=== PATIENT | female | born 1930 | race African-American/Black ===

== ENCOUNTER 2017-11-13 16:17 | Emergency (ER) | payer MEDICARE, OTHER ==
[~2017-11-13] VITALS: Ht 162.6 cm; Wt 68.0 kg
[2017-11-13 16:20] VITALS: BP 153/96
[2017-11-13] MEDS ORDERED: cefTRIAXone 1,000 MG VIAL ONE (16:32)
[2017-11-13] MEDS: NACL 0.9% 500 ML IV SCH (16:47)
[2017-11-13] MEDS: cefTRIAXone 1,000 MG in DEXT 5% MINI-BAG PLUS 50 ML IV ONE (16:47)
[2017-11-13] MEDS ORDERED: SENN8.6T70 PO (16:51)
[2017-11-13] MEDS ORDERED: DOCU-299 PO (16:51)
[2017-11-13] MEDS ORDERED: ATOR40TA PO (16:51)
[2017-11-13] MEDS ORDERED: VITD1000 PO (16:51)
[2017-11-13] MEDS ORDERED: VITA1TAB44 PO (16:51)
[2017-11-13] MEDS ORDERED: MULT-153 PO (16:51)
[2017-11-13 17:11] LABS: BASOPHILS # (AUTO) 0.1 K/uL (0.00-0.22); BASOPHILS % (AUTO) 0.7 % (0.0-2.0); EOSINOPHILS # (AUTO) 0.1 K/uL (0-0.4); EOSINOPHILS % (AUTO) 0.6 % (0.0-4.0); HEMATOCRIT 30.7 % (36-48); HEMOGLOBIN 9.9 g/dL (12.0-16.0); LYMPHOCYTES # (AUTO) 1.1 K/uL (2.5-16.5); LYMPHOCYTES % (AUTO) 8.1 % (20.5-51.1); MEAN CORPUSCULAR HEMOGLOBIN 27 pg (27-31); MEAN CORPUSCULAR HGB CONC 32 g/dL (33-37); MEAN CORPUSCULAR VOLUME 84.9 fL (80-94); MONOCYTES # (AUTO) 0.8 K/uL (0.8-1.0); MONOCYTES % (AUTO) 5.9 % (1.7-9.3); NEUTROPHILS # (AUTO) 11.8 K/uL (1.8-7.7); NEUTROPHILS % (AUTO) 84.7 % (42.2-75.2); PLATELET COUNT (AUTO) 354 K/uL (140-450); RED BLOOD CELL COUNT(AUTO) 3.62 MIL/uL (4.20-5.40); RED CELL DISTRIBUTION WIDTH 22.4 % (11.6-13.7); WHITE BLOOD COUNT (AUTO) 13.9 K/uL (4.8-10.8)
[2017-11-13 17:23] LABS: PROTHROMBIN TIME 10.6 secs (10.8-13.4)
[2017-11-13 17:40] LABS: ANION GAP 12.4 (8-16); CARBON DIOXIDE 27.3 mmol/L (21-32); CHLORIDE 104 mmol/L (98-107); GLUCOSE 132 mg/dL (74-106); POTASSIUM 3.7 mmol/L (3.5-5.1); SODIUM SERUM 140 mmol/L (136-145); UREA NITROGEN, BLOOD 18 mg/dL (7-18)
[2017-11-13 17:41] LABS: CREATININE 0.9 mg/dL (0.6-1.3); TOTAL BILIRUBIN 0.3 mg/dL (0.0-1.0)
[2017-11-13 17:42] LABS: ASPARTATE AMINOTRANSFERASE 41 U/L (15-37)
[2017-11-13 18:45] LABS: APPEARANCE,URINE CLEAR (CLEAR); COLOR,URINE YELLOW (YELLOW); UGLUCOSE NEGATIVE (NEGATIVE)
[2017-11-13 18:46] LABS: BILIRUBIN,URINE NEGATIVE (NEGATIVE); BLOOD, URINE TRACE (NEGATIVE); NITRITE, URINE NEGATIVE (NEGATIVE)
[2017-11-13 18:47] LABS: LEUKOCYTE ESTERASE ,URINE TRACE (NEGATIVE)
[2017-11-13 18:49] LABS: RBC,URINE 3-10 (FEW) /HPF (0-5); WBC,URINE 6-15 (FEW) /HPF (0-5)
[2017-11-13] MEDS: NACL 0.9% 250 ML IV ONE (22:36)
[2017-11-14 00:55] VITALS: BP 115/34
== END 2017-11-14 00:55 | disposition short-term general hospital (02) ==
LOC: MED 16:17
DX: R41.82 Altered mental status, unspecified (principal); E86.0 Dehydration; I12.0 Hypertensive chronic kidney disease with stage 5 chronic kidney disease or end stage renal disease; N18.6 End stage renal disease; R94.31 Abnormal electrocardiogram [ECG] [EKG]; Z88.8 Allergy status to other drugs, medicaments and biological substances; Z79.899 Other long term (current) drug therapy
CPT/HCPCS: 36415; 70450; 71045; 80053; 81001; 82550; 83605; 83880; 84484; 85025; 85610; 85730; 87040; 87086; 93005; 96361; 96365; 99285; J0696; J7030; J7060; Q0092

== ENCOUNTER 2020-10-20 12:20 | Emergency (ER) | payer MEDICARE, MEDICAID ==
[~2020-10-20] VITALS: Ht 162.6 cm; Wt 54.4 kg
[~2020-10-20 12:20] MED LIST: ATOR40TA PO; DOCU-299 PO; MULT-2112 PO; SENN-101 PO; VITA1TAB44 PO; VITD1000 PO
--- NOTE | 2020-10-20 12:20 | NUR ---
PT BROUGHT TO BED 5 VIA [facility]
[2020-10-20 12:25] VITALS: BP 135/62
--- NOTE | 2020-10-20 12:25 | NUR ---
89 y/o F BIBA BLS from [facility] for hematuria through Macario catheter and coccyx wound. Per [facility], hematuria through Macario catheter x 1 week; 5mL katie urine noted in Macario bag. Patient was taken off hospice by family yesterday. EMS states patient DNR/comfort measures, however, POLST without MD signature. Pt arousable to voice but unable to answer commands; 3L via NC upon arrival. SpO2 100% HR 83, BP 135/62, RR 11. maintenance craftsman in place. Bed locked in lowest position, side rails x 2 for pt safety. PMH: HTN, 2011 AAA repair, HLD, dementia, CAD, CKD Meds: See chart A: Lactose
[2020-10-20] MEDS ORDERED: CEPH-588 PO (13:43)
--- NOTE | 2020-10-20 14:41 | NUR ---
Patient appears to be resting in bed. Vital Signs within normal limits. Respirations even and unlabored.
[2020-10-20 14:52] VITALS: BP 125/49
--- NOTE | 2020-10-20 15:15 | NUR ---
[facility] at bedside
--- NOTE | 2020-10-20 15:25 | NUR ---
Report given to THOMAS Nogueira at [facility] [place]. Advised of ETA 5 min Addendum: 10/20/20 at 1539 by DHARMESH Advised of UTI findings and redressed pressure wound, prescribed Keflex PO. All questions answered.
--- NOTE | 2020-10-20 15:30 | NUR ---
Patient discharged with v/s stable. Written and verbal after care instructions given and explained. Patient alert, oriented and verbalized understanding of instructions. Ambulance Transport with steady gait. All questions addressed prior to discharge. ID band removed. Patient advised to follow up with PMD. Rx of Keflex given. Patient educated on indication of medication including possible reaction and side effects. Opportunity to ask questions provided and answered.
== END 2020-10-20 15:30 | disposition home or self-care (01) ==
LOC: MED 12:20
DX: N39.0 Urinary tract infection, site not specified (principal); R31.9 Hematuria, unspecified; L89.90 Pressure ulcer of unspecified site, unspecified stage; I12.0 Hypertensive chronic kidney disease with stage 5 chronic kidney disease or end stage renal disease; N18.6 End stage renal disease; F03.90 Unspecified dementia, unspecified severity, without behavioral disturbance, psychotic disturbance, mood disturbance, and anxiety; E78.5 Hyperlipidemia, unspecified; Z79.899 Other long term (current) drug therapy; Z88.8 Allergy status to other drugs, medicaments and biological substances
CPT/HCPCS: 81002; 87086; 99283